=== PATIENT | female | born 1970 | race Caucasian/White ===

== ENCOUNTER 2020-06-23 08:34 | Outpatient (CLI) | payer MEDICARE, OTHER ==
[2020-06-23] MEDS ORDERED: Lidocaine 1% PF 5 ML VIAL ONE ×2 (08:41→08:42)
[2020-06-23] MEDS ORDERED: EPINEPHrine 1 MG/ML AMP ONE (08:41)
[2020-06-23] MEDS ORDERED: Sodium Bicarbonate 2.5 MEQ/5 ML VIAL ONE (08:42)
[2020-06-23 09:08] VITALS: BMI 43.5
[2020-06-23 09:09] VITALS: BP 129/71; TEMP 98
== END 2020-06-23 11:16 | disposition home or self-care (01) ==
LOC: CSHRAD 08:34
PROVIDERS: ATTEND Orthopaedic Surgery
DX: M25.512 Pain in left shoulder (principal); M75.102 Unspecified rotator cuff tear or rupture of left shoulder, not specified as traumatic; S43.432A Superior glenoid labrum lesion of left shoulder, initial encounter; M62.512 Muscle wasting and atrophy, not elsewhere classified, left shoulder
CPT/HCPCS: 23350; J0171

== ENCOUNTER 2021-08-17 12:50 | Emergency (ER) | payer MEDICARE, OTHER | END 2021-08-17 15:20 | disposition home or self-care (01) | LOC: CSHERS 12:50 | DX: S20.211A Contusion of right front wall of thorax, initial encounter (principal); M25.461 Effusion, right knee; M25.421 Effusion, right elbow; M06.9 Rheumatoid arthritis, unspecified; W19.XXXA Unspecified fall, initial encounter ==